=== PATIENT | female | born 1990 | race Caucasian/White ===

== ENCOUNTER 2022-11-26 09:32 | Emergency (ER) | payer BC ==
[~2022-11-26] VITALS: Ht 157.5 cm; Wt 72.6 kg
[2022-11-26 09:39] VITALS: BP_SYST 122; PULSE 71; RESP 16; TEMP 97.2; O2SAT 98
[2022-11-26] MEDS ORDERED: MECLIZINE HCL 25 MG TABLET (ANITVERT) PO ONE (09:45)
[2022-11-26] MEDS ORDERED: METOCLOPRAMIDE HCL 10 MG/2 ML VIAL IVP ONE (09:45)
[2022-11-26 10:41] LABS: BASOPHILS % (AUTO) 0.2 % (0.0-2.0); EOSINOPHILS # (AUTO) 0.1 K/uL (0.0-0.4); HEMATOCRIT 37.9 % (36-48); HEMOGLOBIN 12.6 g/dL (12.0-16.0); LYMPHOCYTES # (AUTO) 1.8 K/uL (1.0-5.5); LYMPHOCYTES % (AUTO) 27.2 % (20.5-51.5); MEAN CORPUSCULAR HEMOGLOBIN 27 pg (27-31); MEAN CORPUSCULAR HGB CONC 33 % (32-36); MEAN CORPUSCULAR VOLUME 82 fL (79.0-98.0); MONOCYTES # (AUTO) 0.4 K/uL (0.0-1.0); MONOCYTES % (AUTO) 6.1 % (1.7-9.3); NEUTROPHILS # (AUTO) 4.3 K/uL (1.8-7.7); NEUTROPHILS % (AUTO) 65.5 % (40.0-70.0); PLATELET COUNT (AUTO) 230 K/uL (130-430); RED CELL DISTRIBUTION WIDTH 14.7 % (9.0-15.0); WHITE BLOOD COUNT (AUTO) 6.5 K/uL (4.8-10.8)
[2022-11-26 10:51] LABS: INR 0.9 (0.8-1.2); PROTHROMBIN TIME 9.6 SECS (9.5-12.5)
[2022-11-26 10:55] LABS: ALANINE AMINOTRANSFERASE 155 U/L (12-78); ALBUMIN 2.7 g/dL (3.4-4.8); ANION GAP 9 (5-15); ASPARTATE AMINOTRANSFERASE 49 U/L (10-37); CALCIUM 8.7 mg/dL (8.4-11.0); CARBON DIOXIDE 22 mmol/L (23-29); CHLORIDE 105 mmol/L (98-107); CREATININE 0.52 mg/dL (0.55-1.30); GFR AFRICAN AMERICAN 174 mL/min (>90); GFR NON AFRICAN-AMERICAN 143 mL/min (>90); GLUCOSE 78 mg/dL (74-106); POTASSIUM 4.1 mmol/L (3.5-5.1); SODIUM SERUM 136 mmol/L (136-145); TOTAL BILIRUBIN 0.3 mg/dL (0.0-1.0); TOTAL PROTEIN, SERUM 6.2 g/dL (6.4-8.3); UREA NITROGEN, BLOOD 6 mg/dL (8-21)
[2022-11-26] MEDS ORDERED: MECL-261 PO (11:05)
[2022-11-26 11:13] VITALS: BP_SYST 117; PULSE 71; RESP 16; TEMP 97.2; O2SAT 98
== END 2022-11-26 11:13 | disposition home or self-care (01) ==
LOC: SED 09:32
DX: O26.812 Pregnancy related exhaustion and fatigue, second trimester (principal); Z3A.23 23 weeks gestation of pregnancy; Z79.899 Other long term (current) drug therapy
CPT/HCPCS: 99284; 96374; 80053; 85025; 85610; 85730; 84484; 36415; 93005; J8597; J2765